=== PATIENT | female | born 2005 | race Caucasian/White ===

== ENCOUNTER 2023-07-10 16:22 | Emergency (ER) | payer OTHER ==
[~2023-07-10] VITALS: Ht 154.9 cm; Wt 60.3 kg
== END 2023-07-10 22:26 | disposition home or self-care (01) ==
LOC: EMR PED 16:22
PROVIDERS: Emergency Medicine
DX: J06.0 Acute laryngopharyngitis (principal); Z20.822 Contact with and (suspected) exposure to COVID-19; E03.9 Hypothyroidism, unspecified